=== PATIENT | female | born 1985 | race Caucasian/White ===

== ENCOUNTER 2018-01-20 10:16 | Inpatient (IN) | payer BC ==
[2018-01-20] MEDS ORDERED: ceFAZolin IN SWFI 2 GM/20 ML SYRINGE IVP ONE (10:45)
[2018-01-20] MEDS ORDERED: CITRIC ACID-SODIUM CITRATE 15 ML CUP PO ONE (10:45)
[2018-01-20 10:50] VITALS: BMI 29.2
[2018-01-20] MEDS: LACTATED RINGERS 1,000 ML IV SCH ×3 (10:53→15:55)
[2018-01-20 10:57] LABS: Basophils % (A) 0 %; Eosinophils # (A) 0.1 k/uL (0-0.7); Eosinophils % (A) 1 %; HGB 12.9 gm/dL (11.4-16.0); Lymphocytes # (A) 1.7 k/uL (1.0-4.8); Lymphocytes % (A) 15 %; MCH 29.7 pg (25.0-35.0); MCHC 33.1 g/dL (31.0-37.0); MCV 89.8 fL (80.0-100.0); Mean Platelet Volume 9.3; Monocytes # (A) 0.5 k/uL (0-1.0); Monocytes % (A) 5 %; Neutrophils # (A) 8.7 k/uL (1.3-7.7); Neutrophils % (A) 77 %; Platelet Count 192 k/uL (150-450); RBC 4.35 m/uL (3.80-5.40); RDW 13.5 % (11.5-15.5); WBC 11.2 k/uL (3.8-10.6)
[2018-01-20] MEDS ORDERED: LANOLIN CREAM 5 GM TUBE TOPICAL PRN (12:46)
[2018-01-20] MEDS ORDERED: NALOXONE 0.4 MG/ML 1 ML VIAL IV PRN ×2 (12:46→13:19)
[2018-01-20] MEDS ORDERED: diphenhydrAMINE 25 MG CAP PO PRN (12:46)
[2018-01-20] MEDS ORDERED: diphenhydrAMINE 50 MG/ML 1 ML VIAL IVP PRN ×3 (12:46→13:19)
[2018-01-20] MEDS ORDERED: Acetaminophen-Codeine 300-30mg TAB PO PRN ×2 (12:46)
[2018-01-20] MEDS ORDERED: diphenhydrAMINE 50 MG CAP PO PRN (12:46)
[2018-01-20] MEDS ORDERED: ZOLPIDEM 5 MG TAB PO PRN (12:46)
[2018-01-20] MEDS ORDERED: ONDANSETRON 4 MG/2 ML VIAL IVP PRN ×2 (12:46→13:19)
[2018-01-20] MEDS ORDERED: METOCLOPRAMIDE 5 MG/ML 2 ML VIAL IVP PRN (12:46)
[2018-01-20] MEDS ORDERED: KETOROLAC 30 MG/ML 1 ML VIAL ONE (12:56)
[2018-01-20] MEDS ORDERED: MORPHINE SULFATE (PF) 0.3 MG/0.3 ML SYR ONE (12:56)
[2018-01-20] MEDS ORDERED: OXYTOCIN 10 UNIT/ML 1 ML VIAL ONE (12:56)
[2018-01-20] MEDS ORDERED: ONDANSETRON 4 MG/2 ML VIAL ONE (12:56)
[2018-01-20] MEDS ORDERED: NALBUPHINE 10 MG/ML AMPUL ONE (12:56)
[2018-01-20] MEDS ORDERED: OXYTOCIN 20 UNITS/1000 ML NS 1,000 ML IV SCH (13:00)
[2018-01-20] MEDS ORDERED: MORPHINE SULFATE 4 MG/ML SYRINGE IVP PRN (13:19)
[2018-01-20] MEDS ORDERED: ACETAMINOPHEN IV (For NPO) 1,000 MG in EMPTY BAG 1 BAG IVPB ONE (13:30)
--- NOTE | 2018-01-20 13:39 | P.HPOB ---
History of Present Illness H&P Date: 01/20/18 Chief Complaint: IUP @ 39 weeks, h/o uterine septum 32yo that presents for primary LTCS, secondary to uterine septum repair. care is uneventful blood work shows a blood type of O+, rubella immune, hepatitis B surface antigen negative, GBS negative, HIV negative, RPR negative Review of Systems Constitutional: Denies chills, Denies fatigue, Denies fever Respiratory: Denies cough, Denies dyspnea Gastrointestinal: Denies constipation, Denies diarrhea Genitourinary: Reports Past Medical History Past Medical History: No Reported History History of Any Multi-Drug Resistant Organisms: None Reported Past Surgical History: Orthopedic Surgery Additional Past Surgical History / Comment(s): RT KNEE SCOPE. COLONOSCOPY. EGD. UTERUS SX Past Anesthesia/Blood Transfusion Reactions: No Reported Reaction Past Psychological History: No Psychological Hx Reported Smoking Status: Former smoker Past Alcohol Use History: None Reported Additional Past Alcohol Use History / Comment(s): QUIT SMOKING APRIL 2017 Past Drug Use History: None Reported - Past Family History Mother Family Medical History: No Reported History Medications and Allergies Home Medications Medication Instructions Recorded Confirmed Type Vit No.124/Iron/Folic 1 each PO DAILY 07/24/15 01/20/18 History [ Vitamin Tablet] Allergies Allergy/AdvReac Type Severity Reaction Status Date / Time No Known Allergies Allergy Verified 01/20/18 10:44 Exam Osteopathic Statement: *. No significant issues noted on an osteopathic structural exam other than those noted in the History and Physical/Consult. - Vital Signs Vital signs: Vital Signs Temp Pulse Resp BP Pulse Ox 01/20/18 10:46 97.5 F L 75 16 133/68 99 Intake and Output 01/19/18 01/20/18 01/20/18 22:59 06:59 14:59 Other: Weight 87.09 kg - OBG Physical Exam Abdomen: gravid Uterus: enlarged Results Result Diagrams: 01/20/18 10:45 Abnormal Lab Results - Last 24 Hours (Table) 01/20/18 Range/Units 10:45 WBC 11.2 H (3.8-10.6) k/uL Neutrophils # 8.7 H (1.3-7.7) k/uL Assessment and Plan (1) Term Current Visit: Yes Status: Acute Code(s): Z34.80 - ENCOUNTER FOR SUPRVSN OF NORMAL , UNSP TRIMESTER SNOMED Code(s): 83372539 (2) Partial septate uterus Current Visit: Yes Status: Acute Code(s): Q51.2 - OTHER DOUBLING OF UTERUS SNOMED Code(s): 39966350 Plan: LTCS secondary to prior uterine septum removal
--- NOTE | 2018-01-20 13:42 | P.OP ---
Date of Procedure: 01/20/18 Preoperative Diagnosis: IUP @ 39 weeks, h/o uterine septum repair Postoperative Diagnosis: same Procedure(s) Performed: primary LTCS Anesthesia: spinal Surgeon: Salome Couch Post Closer #1: Sanford Miles Estimated Blood Loss (ml): 500 IV fluids (ml): 1,200 Urine output (ml): 500 Pathology: other (placenta) Condition: stable Disposition: PACU Indications for Procedure: h/o uterine septum repair Operative Findings: Normal tubes uterus and ovaries are appreciated Description of Procedure: The patient was prepped and draped in the usual fashion after spinal anesthesia was administered by the anesthesia department. A Pfannenstiel incision was made and extended of the abdominal cavity without difficulty. The bladder peritoneum was elevated and incised and reflected distally. A 2 cm incision was made in the transverse plane of the lower uterine segment to enter the uterus at which time clear fluid was noted. The incision was extended in both directions using the bandage scissors. The head was encountered within the field and delivered up and through the incision where the nose and mouth were thoroughly suctioned. Remainder of the was delivered onto the surgical field where the cord was doubly clamped, cut, and the was passed for resuscitative measures with weight and Apgars as noted above. A segment of cord was then doubly clamped, cut, and set aside should cord gases become necessary. The placenta was delivered manually, intact, and was grossly normal with a grossly normal three-vessel cord. The uterus was exteriorized and the interior cavity of the uterus swept of any remaining placental and membranous fragments with a laparotomy sponge. The margins of the incision were grasped with allis clamps and the incision closed in 2 layers. First layer was a running locking layer of 0 vicryl from margin to margin followed by a second layer of imbricating 0 vicryl from margin to margin. Any small points of bleeding were then made hemostatic with the Bovie. Once hemostasis was achieved, the posterior cul-de-sac was suctioned with a guard and the uterine and ovarian findings are as noted above. The uterus was replaced within the abdominal cavity and the gutters swept of any remaining blood fluid or clot. The incision was again reexamined and hemostasis was noted to be excellent. Any small point of bleeding were made hemostatic with the Bovie. Once hemostasis was achieved the parietal peritoneum was loosely reapproximated. The layer of muscles were examined and made hemostatic with the Bovie. Attention was then turned to the fascia which was closed with 2 running stitches of 0 Vicryl proceeding from the lateral margins to the midpoint. The subcutaneous tissues were irrigated, made hemostatic with the Bovie. The skin was reapproximated with 4-0 vicryl. Estimated blood loss for the case was approximately 500 mL. All sponge instrument and needle counts are correct. There were no complications. The patient tolerated the procedure well and proceeded to the recovery room in stable condition. Both mother and are resting comfortably in recovery. girl delivered at 13:13, weight 7-13 apgars 9-9 at one and five mins respectively
[2018-01-20] MEDS ORDERED: IBUPROFEN IV 800 MG in SODIUM CHLORIDE 0.9% 250 ML IV ONE (14:00)
[2018-01-20] MEDS: KETOROLAC 30 MG/ML 1 ML VIAL IVP PRN (21:48)
[2018-01-20] MEDS: SENNOSIDES-DOCUSATE SODIUM 1 EACH TAB PO SCH (21:48)
[2018-01-21] MEDS: LACTATED RINGERS 1,000 ML IV SCH ×2 (02:41→05:09)
[2018-01-21] MEDS: KETOROLAC 30 MG/ML 1 ML VIAL IVP PRN (03:56)
--- NOTE | 2018-01-21 06:59 | P.PN ---
Progress Note - Text Progress Note Date: 01/21/18 Postoperative day 1 status post section under spinal/epidural anesthesia and intrathecal/epidural Duramorph for postoperative analgesia.The patient is doing well, there is mild generalized skin itching. There are no other anesthesia related complications. Further management as per the patient primary team.
[2018-01-21] MEDS: SENNOSIDES-DOCUSATE SODIUM 1 EACH TAB PO SCH ×2 (07:58→19:59)
--- NOTE | 2018-01-21 08:52 | P.PNOBGPC ---
Subjective - Subjective Principal diagnosis: Postop day 1, primary low transverse section Interval history: Doing well today, pain is well controlled. No nausea or vomiting and tolerating a regular diet. Positive ambulation, positive void Patient reports: Reports appetite normal, Reports voiding normally, Reports pain well controlled, Reports ambulating normally : doing well Objective - Vital Signs Latest vital signs: Vital Signs Temp Pulse Resp BP Pulse Ox 01/21/18 08:00 97.3 F L 82 16 110/69 01/21/18 04:00 98.0 F 64 18 117/70 99 01/21/18 02:00 16 01/21/18 00:00 98.2 F 60 18 129/73 97 01/20/18 22:00 18 01/20/18 20:00 97.8 F 77 18 123/71 97 01/20/18 18:00 20 01/20/18 15:55 16 01/20/18 15:42 63 16 115/74 98 01/20/18 15:11 97.7 F 60 16 118/72 99 01/20/18 14:42 75 16 118/56 98 01/20/18 14:19 16 98 01/20/18 14:12 79 16 113/55 98 01/20/18 13:57 76 16 127/79 98 01/20/18 13:42 96.8 F L 65 16 127/79 99 01/20/18 10:46 97.5 F L 75 16 133/68 99 Intake and Output 01/20/18 01/21/18 01/21/18 22:59 06:59 14:59 Intake Total 1300 100 Output Total 1450 500 800 Balance -1450 800 -700 Intake: Intake, IV Titration 700 Amount Lactated Ringers 1,000 ml 700 @ 125 mls/hr IV .Q8H [facility], [facility] Rx#:[id number] Oral 600 100 Output: Urine 1450 500 800 Uretheral (Fatima) 1300 Other: Voiding Method Indwelling Catheter # Voids 1 1 - Exam Abdomen: Present: normal appearance, soft Incision: Present: normal, dry, intact Uterus: Present: firm - Labs Labs: Abnormal Lab Results - Last 24 Hours (Table) 01/20/18 Range/Units 10:45 WBC 11.2 H (3.8-10.6) k/uL Neutrophils # 8.7 H (1.3-7.7) k/uL Assessment and Plan (1) Term Current Visit: Yes Status: Acute Code(s): Z34.80 - ENCOUNTER FOR SUPRVSN OF NORMAL , UNSP TRIMESTER SNOMED Code(s): 64723207 (2) Partial septate uterus Current Visit: Yes Status: Acute Code(s): Q51.2 - OTHER DOUBLING OF UTERUS SNOMED Code(s): 38160058 Plan: Doing well postoperatively we will encourage routine postoperative care today. Increasing ambulation and advancing diet as tolerated
[2018-01-21 10:03] LABS: Basophils % (A) 0 %; Eosinophils # (A) 0.1 k/uL (0-0.7); Eosinophils % (A) 1 %; HGB 11.1 gm/dL (11.4-16.0); Lymphocytes # (A) 1.6 k/uL (1.0-4.8); Lymphocytes % (A) 14 %; MCH 30.3 pg (25.0-35.0); MCHC 33.7 g/dL (31.0-37.0); MCV 89.9 fL (80.0-100.0); Mean Platelet Volume 8.8; Monocytes # (A) 0.5 k/uL (0-1.0); Monocytes % (A) 4 %; Neutrophils # (A) 9.4 k/uL (1.3-7.7); Neutrophils % (A) 80 %; Platelet Count 192 k/uL (150-450); RBC 3.67 m/uL (3.80-5.40); RDW 13.6 % (11.5-15.5); WBC 11.7 k/uL (3.8-10.6)
[2018-01-21] MEDS: IBUPROFEN 600 MG TAB PO PRN ×3 (10:11→22:50)
[2018-01-21] MEDS: PRENATAL VIT-IRON-FOLIC ACID 1 EACH CAP PO SCH (10:14)
[2018-01-21] MEDS: ACETAMINOPHEN TAB 325 MG TAB PO PRN ×2 (19:58→23:43)
[2018-01-22] MEDS: LACTATED RINGERS 1,000 ML IV SCH (02:41)
[2018-01-22] MEDS: ACETAMINOPHEN TAB 325 MG TAB PO PRN (04:10)
[2018-01-22] MEDS: IBUPROFEN 600 MG TAB PO PRN (07:52)
[2018-01-22] MEDS: PRENATAL VIT-IRON-FOLIC ACID 1 EACH CAP PO SCH (07:55)
--- NOTE | 2018-01-22 08:26 | P.DS ---
Providers Date of admission: 01/20/18 10:16 Expected date of discharge: 01/22/18 Attending physician: Salome Couch Primary care physician: Alexa Wu - Discharge Diagnosis(es) (1) Term Current Visit: Yes Status: Acute (2) Partial septate uterus Current Visit: Yes Status: Acute (3) S/P section Current Visit: Yes Status: Acute Hospital Course: This is a 32-year-old 4 para 0030 that presented to labor and delivery at 39-0/7 weeks for an estimated due date of 01/27/2018. She was scheduled for a primary section secondary to partial septate uterus that was repaired by reproductive endocrinology. It was recommended that given this repair she will proceed with a primary low transverse section. Patient was admitted to labor and delivery and was performed without difficulty. For further details on the please see the operative report. Patient delivered a viable female infant at 1313, weight of 7 lbs. 13 oz., Apgars of 9 and 9 at one and 5 minutes respectively. Patient's postoperative course has been uneventful. She is breast-feeding, she is ambulating and voiding without difficulty. She is tolerating a regular diet without nausea or vomiting and she states her pain is well-controlled. Plan - Discharge Summary Discharge Rx Participant: Yes New Discharge Prescriptions: No Action Vit No.124/Iron/Folic [ Vitamin Tablet] 1 each PO DAILY Discharge Medication List Vit No.124/Iron/Folic [ Vitamin Tablet] 1 each PO DAILY [History] Follow up Appointment(s)/Referral(s): Salome Couch DO [Doctor of Osteopathic Medicine] - 2 Weeks Patient Instructions/Handouts: (DC) Discharge Disposition: HOME SELF-CARE
[2018-01-22 10:20] VITALS: BP 121/71; PULSE 80; RESP 18; TEMP 97.7
[2018-01-22] MEDS: SENNOSIDES-DOCUSATE SODIUM 1 EACH TAB PO SCH (10:20)
== END 2018-01-22 13:45 | disposition home or self-care (01) | DRG 766 ==
LOC: 4FBP 10:16
PROVIDERS: ADMIT Obstetrics & Gynecology Obstetrics; ATTEND Obstetrics & Gynecology Obstetrics
PROC: 10D00Z1 Extraction of Products of Conception, Low, Open Approach (ICD-10-PCS; principal; 2018-01-20 12:00)
DX: O34.03 Maternal care for unspecified congenital malformation of uterus, third trimester (principal); L29.9 Pruritus, unspecified; Q51.2 Other doubling of uterus; Z37.0 Single live birth; Z3A.39 39 weeks gestation of pregnancy; Z87.891 Personal history of nicotine dependence
CPT/HCPCS: 85025; 86850; 86900; 86901; 88307

== ENCOUNTER → 2023-02-14 | Day surgery (SDC) | payer BC ==
[2023-02-10 17:42] VITALS: BMI 22.1
[~2023-02-14] MED LIST: LACTATED RINGERS 1,000 ML IV SCH; LIDOCAINE 1% (10MG/ML) FOR IV START INTRADERMA PRN; LIDOCAINE 2% INJ 20 MG/ML (2 ML VIAL) ONE; MIDAZOLAM 2 MG/2 ML VIAL ONE; PROPOFOL 10 MG/ML 20 ML VIAL IV ONE; fentaNYL (PF) 50 MCG/ML 2 ML AMP ONE
[2023-02-14 12:27] VITALS: RESP 16; TEMP 97.2
--- NOTE | 2023-02-14 13:25 | P.PCN ---
Date of Procedure: 02/14/23 Procedure(s) Performed: BRIEF HISTORY: Patient is a 37-year-old, pleasant, white female scheduled for an upper endoscopy as a part of evaluation of abdominal bloating, diarrhea of several months duration. Recently was noted to have positive serology for celiac disease.. PROCEDURE PERFORMED: Esophagogastroduodenoscopy with biopsy. PREOPERATIVE DIAGNOSIS: Abdominal bloating/diarrhea/positive serology for celiac disease. IV sedation per anesthesia. PROCEDURE: After informed consent was obtained, the patient was brought into the endoscopy unit. IV sedation was administered by Anesthesia under continuous monitoring. Initially the Olympus GIF-140 video endoscope was inserted into the mouth. Esophagus intubated without any difficulty. It was gradually advanced into the stomach and duodenum and carefully examined. The bulb and the second part of the duodenum appeared normal. Multiple biopsies were done from the duodenum to evaluate for celiac disease. The scope at this time was withdrawn to the stomach, adequately insufflated with air, and upon careful examination, mucosa of the antrum had mild gastritis and biopsies were done from this area. Mucosa of the, body, cardia and the fundus appeared normal. The scope was then withdrawn into the esophagus. The GE junction was located at 39 cm from the incisors. The esophagus appeared normal. There were no erosions or ulcerations seen and the patient tolerated the procedure well. IMPRESSION: 1. Normal-appearing duodenum with no evidence of duodenitis. S/p post biopsies to rule out celiac disease 2. Mild antral gastritis. RECOMMENDATIONS: The findings of this examination were discussed with the patient as well as a family. She was advised to follow with the biopsy results. She'll be seen in office in 2-3 weeks.
[2023-02-14 13:53] VITALS: BP 119/78; PULSE 82
== END ==
LOC: ORWHC2ENDO 11:59
PROVIDERS: ATTEND Internal Medicine Gastroenterology
DX: K29.50 Unspecified chronic gastritis without bleeding (principal); K58.9 Irritable bowel syndrome, unspecified; F17.200 Nicotine dependence, unspecified, uncomplicated; Z79.899 Other long term (current) drug therapy
CPT/HCPCS: 81025; 88305; 43239; J2250; J3010; J2704; J2001